=== PATIENT | female | born 1980 | race Caucasian/White ===

== ENCOUNTER 2017-06-04 07:06 | Outpatient (CLI) ==
[2017-06-04 08:57] VITALS: BMI 28.3
== END 2017-06-04 07:07 | disposition home or self-care (01) ==
LOC: DIETCN 07:06
PROVIDERS: ATTEND Family Medicine
DX: E16.2 Hypoglycemia, unspecified (principal)

== ENCOUNTER 2018-03-16 14:31 | Outpatient (CLI) ==
[2018-03-16 16:13] VITALS: BMI 29.6
== END 2018-03-16 14:32 | disposition home or self-care (01) ==
LOC: DIETCN 14:31
PROVIDERS: ATTEND Family Medicine
DX: E66.3 Overweight (principal)